=== PATIENT | male | born 1985 | race Caucasian/White ===

== ENCOUNTER → 2016-10-20 | Outpatient (CLI) | payer OTHER ==
[~2016-10-20] MED LIST: ALBUTEROL17 GM INH; ANEXSIA 7.5/3251 TA1 PO; ASPIRIN EC81 M1 PO; CLARITIN10 M2 PO; ERYTHROMYCIN250 M3 PO; ESCITALOPRAM OX10 MG PO; LISINOPRIL PO; MONTELUKAST SOD10 MG PO; PRILOSEC PO; SUMATRIPTAN SUC50 M1 PO; SYMBICORT80 INH; TOPIRAMATE100 MG PO; TRAZODONE HCL100 MG PO
--- NOTE | ~2016-10-20 | EKG ---
PATIENT: HOME LITTLE UNIT #: [id number] Ventricular Rate: 77 BPM Atrial Rate: 77 BPM P-R Interval: 126 ms QRS Duration: 102 ms Q-T Interval: 358 ms QTC Calculation(Bezet): 405 ms P Anderson: 19 degrees Calculated R Anderson: -12 degrees Calculated T Anderson: 16 degrees Diagnosis Line: Normal sinus rhythm Diagnosis Line: Voltage criteria for left ventricular hypertrophy Diagnosis Line: Abnormal ECG Diagnosis Line: Diagnosis Line: Confirmed by ARON CARBAJAL MD ([id number]) on Diagnosis Line: 10/20/2016 3:29:09 PM INTERPRETING MD: RAVEN MURRAY
[2016-10-20 13:59] LABS: HEMATOCRIT 43.8 % (38.0-50.0); MEAN CELL VOLUME 91.3 FL (83-96); MEAN CORPUSCULAR HEMOGLOBIN 31.3 PG (28-34); MEAN CORPUSCULAR HGB CONC 34.3 g/dL (30-36); MEAN PLATELET VOLUME 8.5 FL (6.5-11.5); RED BLOOD COUNT 4.8 X10e (3.90-5.60); RED CELL DISTRIBUTION WIDTH 12.9 % (11.0-15.5); WHITE BLOOD COUNT 9.9 X10e3 (4.0-10.5)
[2016-10-20 14:25] LABS: BLOOD UREA NITROGEN 10 mg/dL (9-23); BUN/CREATININE RATIO 11.11; CALCIUM SERUM 8.9 mg/dL (8.4-10.2); CARBON DIOXIDE 22 mmol/L (22-31); CHLORIDE 112 mmol/L (100-111); CREATININE SERUM 0.9 mg/dL (0.6-1.4); GLOM FILT RATE Estimated ABOVE60 mL/min (>60); GLUCOSE FASTING 88 mg/dL (70-110); POTASSIUM 3.8 mmol/L (3.5-5.1); SODIUM 137 mmol/L (135-145)
== END | disposition home or self-care (01) ==
LOC: CAMB 13:19
PROVIDERS: Specialist
DX: Z01.818 Encounter for other preprocedural examination (principal); L02.215 Cutaneous abscess of perineum
CPT/HCPCS: 36415; 80048; 85027; 93005

== ENCOUNTER → 2016-10-23 | Day surgery (SDC) | payer OTHER ==
--- NOTE | ~2016-10-23 | OR ---
Unit #: [id number] #: [id number] Patient: HOME LITTLE [id number] [address] [place], [place] [address] [id number] MR#: [id number] NAME: HOME LITTLE ROOM: Date of Procedure: 10/23/2016 Admission Date: 10/23/2016 Surgeon: Sage Horvath M.D. : 1985 Attending Physician: Sage Horvath M.D. Primary Care Physician: Jodi Wynn A.P.R.N. OPERATIVE REPORT PREOPERATIVE DIAGNOSIS Chronic perineal body cyst. POSTOPERATIVE DIAGNOSIS Chronic perineal body cyst. PROCEDURES PERFORMED Rectal examination under anesthesia, excision of a 2.2-cm perineal body cyst, placement of a Phillip drain. ANESTHESIA General endotracheal anesthesia. ESTIMATED BLOOD LOSS 30 mL. INDICATIONS FOR PROCEDURE Mr. Trinh is a 31-year-old gentleman who has severe diffuse cystic acne and chronic comedones, who presents with a painful mass in the perianal area and more within the perineal body. He says it waxes and wanes in size and causes significant discomfort. It often responds to antibiotics. It has never spontaneously drained. DESCRIPTION OF PROCEDURE The patient was admitted to [facility], positively identified, transported to the operating room, and after induction of general endotracheal anesthesia, he received vancomycin IV. He was placed in a lithotomy position. Rectal examination under anesthesia was performed, and other than his chronic skin condition, no other abnormalities were noted in the perianal area. The mass was palpable in the subcutaneous tissue of the perineal body at approximately 1 o'clock position when looking at the anal verge. After he was prepped and draped in the usual sterile fashion, a transverse incision in the skin line was made over the mass. I dissected down through the soft tissue and removed the cyst and some chronically scarred tissues around the palpable mass. I palpated through the incision and no other palpable abnormalities were noted. I irrigated and obtained hemostasis. 30 mL of local anesthetic were infiltrated. Through a separate stab incision, a quarter-inch [place] drain was placed in the base of the wound and then the soft tissue was closed over the drain using 2-0 Vicryl interrupted sutures. The drain was secured with 4-0 Vicryl suture and the skin was closed with 4-0 Vicryl vertical mattress sutures. Zuleima-Pad and fishnet pants were placed as Unit #: [id number] #: [id number] Patient: HOME LITTLE. Sponges and needle counts were correct x3. The patient tolerated the procedure well and was transported to recovery in stable condition. Findings and postoperative instructions were discussed with his family. Dictated by... Yousuf Nicholas/shira TD: 10/24/2016 05:22 JOB #: [id number] OPERATIVE REPORT X Sage Horvath MD X PROCEDURE OPERATIVE NOTE
== END | disposition home or self-care (01) ==
LOC: CSUR 08:48
DX: L08.9 Local infection of the skin and subcutaneous tissue, unspecified (principal); I10 Essential (primary) hypertension; J45.909 Unspecified asthma, uncomplicated; K57.30 Diverticulosis of large intestine without perforation or abscess without bleeding; F17.210 Nicotine dependence, cigarettes, uncomplicated; Z79.82 Long term (current) use of aspirin; Z79.899 Other long term (current) drug therapy; Z99.89 Dependence on other enabling machines and devices; Z90.49 Acquired absence of other specified parts of digestive tract; Z90.89 Acquired absence of other organs; Z98.890 Other specified postprocedural states
CPT/HCPCS: 88304; J0330; J2250; J2405; J2765; J3010; J3370